=== PATIENT | female | born 1955 | race Caucasian/White ===

== ENCOUNTER 2020-08-25 18:16 | Emergency (ER) | payer SELFPAY ==
[~2020-08-25] VITALS: Ht 162.6 cm; Wt 103.4 kg
[~2020-08-25 18:16] MED LIST: AMOX500 PO; CLAR500CR PO; HYDACE5 PO; OMEP40CA12 PO; PENVK500 PO
[2020-08-25] MEDS ORDERED: HYDR1TAB94 PO (19:07)
== END 2020-08-25 19:30 | disposition home or self-care (01) ==
LOC: ER 18:16
DX: S63.502A Unspecified sprain of left wrist, initial encounter (principal); W19.XXXA Unspecified fall, initial encounter
CPT/HCPCS: 29125; 73110; 99283-25; A9270

== ENCOUNTER 2024-09-23 09:31 | Inpatient (IN) | payer OTHER ==
[~2024-09-23] VITALS: Ht 162.6 cm; Wt 82.6 kg
[~2024-09-23 09:31] MED LIST changes: +HYDR1TAB94 PO
[2024-09-23] MEDS ORDERED: Ondansetron HCl 2 MG / ML 2ML Vial IV ONE (10:00)
[2024-09-23] MEDS ORDERED: NS 1,000 ML IV SCH ×2 (10:00→14:00)
[2024-09-23 10:19] LABS: BASOPHILS ABSOLUTE AUTO 0.03 K/mm3 (0.00-0.23); BASOPHILS PERCENT AUTO 0 % (0-2); EOSINOPHILS ABSOLUTE AUTO 0.04 K/mm3 (0.00-0.68); EOSINOPHILS PERCENT AUTO 0 % (0-6); Hematocrit 37.9 % (33.0-51.0); Hemoglobin 12.5 g/dL (11.5-16.0); IMMATURE GRAN ABSOLUTE AUTO 0.06 K/mm3 (0.00-0.10); IMMATURE GRAN PERCENT AUTO 0 % (0-1); LYMPHOCYTES ABSOLUTE AUTO 0.92 K/mm3 (0.84-5.20); LYMPHOCYTES PERCENT AUTO 7 % (21-46); MONOCYTES ABSOLUTE AUTO 0.81 K/mm3 (0.16-1.47); MONOCYTES PERCENT AUTO 6 % (4-13); Mean Corpuscular HGB 27.8 pg (26.0-34.0); Mean Corpuscular Volume 84 fL (80-100); Mean Platelet Volume 10.1 fL (9.1-12.4); NEUTROPHILS ABSOLUTE AUTO 11.78 K/mm3 (1.96-9.15); NEUTROPHILS PERCENT AUTO 87 % (41-73); Platelet Count 262 K/mm3 (150-400); RDW Coefficient Variation 14.3 % (11.7-14.2); RDW Standard Deviation 44.2 fL (35.1-46.3); Red Blood Cell Count 4.49 M/mm3 (3.80-5.20); White Blood Cell Count 13.64 K/mm3 (4.00-11.30)
[2024-09-23 10:41] LABS: Albumin, Blood 3.1 g/dL (3.4-5.0); Albumin/Globulin Ratio 0.7 (0.8-1.8); Bilirubin, Total 0.6 mg/dL (0.1-1.0); Bun/Creatinine Ratio 20.1 (12.0-20.0); Calcium, Blood 9.3 mg/dL (8.5-10.1); Creatinine, Blood 2.54 mg/dL (0.40-1.00); Globulin, Blood 4.4 g/dL (2.2-4.0); Potassium, Blood 3.3 mmol/L (3.5-5.5); Total Protein, Blood 7.5 g/dL (6.4-8.2)
[2024-09-23] MEDS ORDERED: CefTRIAXone Sodium 1,000 MG in NS 100 ML IV SCH (13:30)
[2024-09-23] MEDS ORDERED: HydrALAZINE HCl 20 MG / ML 1ML Vial IV PRN (13:45)
[2024-09-23 14:03] LABS: Source, Urine Voided
[2024-09-23 14:06] LABS: Appearance, Urine Hazy (Clear); Bilirubin, Urine Neg (Neg); Blood, Urine 2+ (Neg); Glucose Qualitative, Urine Neg (Neg); Ketones, Urine 1+ (Neg); Leukocyte Esterase, Urine 1+ (Neg); Nitrite, Urine Neg (Neg); Protein, Urine 2+ (Neg); Specific Gravity, Urine 1.015 (1.003-1.022); Urobilinogen, Urine NORM (Normal)
[2024-09-23 14:17] LABS: Color, Urine Pale Yellow (P-Yellow)
[2024-09-23 14:18] LABS: Bacteria Many /hpf; Hyaline Casts 0-2 /lpf (0-2); Mucus Light (0-Heavy); Squamous Epithelial Cells Rare /hpf (Few)
[2024-09-23 14:46] VITALS: BP 189/79
[2024-09-23] MEDS ORDERED: LOSARTAN POTASS50 M1 PO (14:47)
[2024-09-23 15:05] VITALS: BP 153/76
--- NOTE | 2024-09-23 15:15 | NUR ---
ARRIVAL TO UNIT AFTER RECEIVING REPORT FROM ED RN, PATIENT TRANSFERRED TO UNIT AT APPROX 1430. PATIENT ALERT - ABLE TO STAND AND TRANSFER FROM TO BED INDEPENDENTLY. INITIAL SBP 170s-180s. MAP >65. HX OF HTN - DENIES CHEST PAIN, PRESSURE. FOLLOWING A PERIOD OF REST, SBP DECREASED TO 150s. PRN IV HYDRALAZINE IN PLACE FOR SBP >160. TELEMETRY SHOWING SINUS 70s PER PAVING RAMMER. ON ROOM AIR, SATs >90%. RR EVEN, UNLABORED. REPORTING MILD ABD PAIN - HYPOACTIVE BOWEL TONES. DENIES N/V. PLAN FOR ROBOTIC APPENDECTOMY TOMORROW - WATER PROVIDED. IVF AND IV ABX INFUSING PER EMAR. CALL LIGHT IN REACH. FAMILY AT BEDSIDE.
[2024-09-23] MEDS ORDERED: MetroNIDAZOLE 500MG/NS 100 ml 100 ML IV SCH (16:00)
[2024-09-23] MEDS ORDERED: Acetaminophen 325 MG TABLET PO PRN (16:00)
--- NOTE | 2024-09-23 17:31 | NUR ---
SHIFT SUMMARY NO ACUTE CHANGES SINCE ARRIVAL TO UNIT. PATIENT REMAINS ALERT AND ORIENTED X4. COMMUNICATES NEEDS EFFECTIVELY. VSS. NO EVENTS REPORTED BY TELEMETRY. PATIENT REQUESTING TYLENOL FOR PAIN MANAGEMENT - MD CASH CONTACTED, ORDER RECEIVED. PAIN MANAGED PER EMAR WITH PO TYLENOL. DENIES N/V. TOLERATING SMALL SIPS OF WATER - NPO AT MIDNIGHT. IVF INFUSING PER EMAR. AMBULATING WITH SBA. FAMILY AT BEDSIDE. CALL LIGHT IN REACH.
[2024-09-23 19:11] VITALS: BP 143/74
[2024-09-24] VITALS (15 sets, daily range): BP systolic 129–183; BP diastolic 66–88
[2024-09-24 05:42] LABS: Bun/Creatinine Ratio 25.6 (12.0-20.0); Calcium, Blood 8.5 mg/dL (8.5-10.1); Creatinine, Blood 1.6 mg/dL (0.40-1.00)
--- NOTE | 2024-09-24 06:43 | NUR ---
SHIFT SUMMARY PATIENT HAS HIGH PAIN TOLERANCE. MEDICATED PER EMR THIS SHIFT. GAVE TYLENOL FOR PAIN FOR BACK/FLANK PAIN. PATIENT SAYS I NEVER TAKE PAIN MEDICATION AT HOME, STATES "I USE MY MIND TO DEAL WITH IT AND KEEP BUSY SO I DONT THINK ABOUT IT." NPO SINCE MN. PATIENT INDEPENDENT TO BR, TAKES IV POLE WITH HER. STEADY ON FEET. IV IS POSITIONAL BUT WORKS WELL. NO ACUTE CHANGES T/O NOC. PATIENT SCHEDULED FOR APPY TODAY. WILL GIVE REPORT TO ONCOMING RN TAKING PT.
[2024-09-24] MEDS ORDERED: Potassium Chloride 40 MEQ in NS 250 ML IV ONE (07:50)
[2024-09-24] MEDS ORDERED: Bupivacaine 0.5% HCl 5 MG/ML 30MLVIAL ONE (08:04)
[2024-09-24] MEDS ORDERED: propofoL 20 ML IV ONE (08:19)
[2024-09-24] MEDS ORDERED: Dexamethasone Sod Phos 10 MG/ML 1ML VIAL ONE (08:19)
[2024-09-24] MEDS ORDERED: Rocuronium Bromide 10 MG/ML 5ML Injection IV ONE (08:19)
[2024-09-24] MEDS ORDERED: Ondansetron HCl 2 MG / ML 2ML Vial ONE (08:19)
[2024-09-24] MEDS ORDERED: FentaNYL Citrate 50 MCG/ML 2 ML Injection ONE ×2 (08:20→09:41)
[2024-09-24] MEDS ORDERED: Lidocaine HCl 4% 5 ML SDA ONE (08:23)
--- NOTE | 2024-09-24 10:26 | NUR ---
09/24/24 1026 [employer] IV POTASSIUM CHLORIDE 270ML 40MEQ STARTED AT 1015 BY ROD LANDRY CRNA.
[2024-09-24] MEDS ORDERED: Sugammadex Sodium 200 MG/2ML SDV (100 MG/ML) ONE (10:40)
[2024-09-24] MEDS ORDERED: Albuterol 2.5 MG/3 ML VIAL INH PRN (11:10)
[2024-09-24] MEDS ORDERED: FentaNYL Citrate 50 MCG/ML 2 ML Injection IV PRN ×3 (11:10→12:15)
[2024-09-24] MEDS ORDERED: Ondansetron HCl 2 MG / ML 2ML Vial IV PRN (11:10)
[2024-09-24] MEDS ORDERED: Lidocaine HCl 1% 5 ML SYR INJ ONE (11:10)
[2024-09-24] MEDS ORDERED: Lactated Ringer's 1,000 ML IV SCH (11:10)
[2024-09-24] MEDS ORDERED: HydrALAZINE HCl 20 MG / ML 1ML Vial IV PRN (11:10)
[2024-09-24] MEDS ORDERED: HYDROmorphone HCl/Pf 1MG SYR IV PRN (11:15)
[2024-09-24] MEDS ORDERED: HYDROmorphone HCl/Pf 1MG SYR ONE (11:20)
[2024-09-24] MEDS ORDERED: HydrALAZINE HCl 20 MG / ML 1ML Vial ONE (11:23)
[2024-09-24] MEDS ORDERED: Piperacillin/Tazobactam Sod 3.375 GM in NS 100 ML IV SCH (12:00)
--- NOTE | 2024-09-24 13:49 | NUR ---
1130 PT TO ROOM 210. LR AND POTASSIUM INFUSING IV R HAND. ALERT TO VERBAL. PT OOB TO BR TO SUCCESSFULLY VOID. POST OP VSS. DRAIN LLQ DRAINING SEROSANGUINOUS FLUID. 4 LAP SITES WITH SKIN ADHESIVE PRESENT. LUNGS MILDLY DIMINISHED BL. SCDS ON. BELLY SOFT; BT HYPOACTIVE. MD CALLED FOR PAIN ORDERS. MEDICATED PER ORDER. WILL CONTINUE TO MONITOR.
--- NOTE | 2024-09-24 14:35 | NUR ---
DRAIN DRESSING LLQ SATURATED WITH SEROSANGUINOUS FLUID. DRESSING TAKEN DOWN. REDRESSED WITH DRAIN SPONGES AND TAPE. BULB DRAIN TO BULB SUCTION
--- NOTE | 2024-09-24 16:48 | NUR ---
END OF SHIFT PT RESTING QUIETLY. DRAIN LLQ SLOWING DOWN FROM INITIAL OUTPUT. SMALL AMT SEROSANGUINOUS DRAINAGE PRESENT. PT PRESENTLY RATES PAIN 2/10. POST OP VS STABLE. IV INFUSING R HAND. WILL CONTINUE TO MONITOR.
[2024-09-25 00:23] VITALS: BP 148/75
[2024-09-25 04:39] LABS: Hematocrit 32.5 % (33.0-51.0); Hemoglobin 10.8 g/dL (11.5-16.0); Mean Corpuscular HGB 27.9 pg (26.0-34.0); Mean Corpuscular HGB Conc 33.2 g/dL (31.5-36.5); Mean Corpuscular Volume 84 fL (80-100); Mean Platelet Volume 10.3 fL (9.1-12.4); Platelet Count 242 K/mm3 (150-400); RDW Coefficient Variation 14.4 % (11.7-14.2); Red Blood Cell Count 3.87 M/mm3 (3.80-5.20); White Blood Cell Count 8.98 K/mm3 (4.00-11.30)
[2024-09-25 05:03] LABS: Bun/Creatinine Ratio 23.6 (12.0-20.0); Calcium, Blood 8.6 mg/dL (8.5-10.1); Creatinine, Blood 1.1 mg/dL (0.40-1.00); Potassium, Blood 3.5 mmol/L (3.5-5.5)
[2024-09-25 06:59] VITALS: BP 171/70
--- NOTE | 2024-09-25 07:48 | NUR ---
SHIFT SUMMARY POST-OP DAY 0, HAD APPENDECTOMY TODAY. 4 SM LAP SITES WITH SKIN GLUE NOTED, ALL CLOSED AND WELL APPROXIMATED. SHASHI DRAIN LT ABD UNDER INCISIONS WITH MINIMAL SERO/SANG DRAINAGE NOTED. MEDICATED PT PER EMAR WITH SCHEDULED 7 PRN MEDS. RESTED WELL T/O NOC POST FENTANYL GIVEN FOR PAIN. GRANDDAUGHTER WILL BE HELPING PT WHEN SHE GETS HOME. PT WITH MINIMAL SB ASSIST TO BR. VOIDING. NO ACUTE CHANGES FROM SHIFT ASSESSMENT. WILL GIVE REPORT TO [facility] THAT HAD PATIENT YESTERDAY.
--- NOTE | 2024-09-25 11:01 | NUR ---
PT OOB AMBULATING MULTIPLE LOOPS OF FLOOR ACCOMPANIED BY FAMILY MEMBER. DENIES COMPLAINTS. WILL CONTINUE TO MONTITOR.
[2024-09-25] MEDS ORDERED: Losartan Potassium 25 MG Tab PO SCH (13:00)
[2024-09-25 13:15] VITALS: BP 140/61
[2024-09-25 14:45] VITALS: BP 118/57
--- NOTE | 2024-09-25 17:37 | NUR ---
END OF SHIFT PT RESTING. IV ABX INFUSING R HAND. PASSING FLATUS. DRAIN WITH LIGHT COLORED SEROSANGUINOUS DRAINAGE. PRESENTLY DENIES PAIN. WILL CONTINUE TO MONITOR.
[2024-09-25 18:37] VITALS: BP 147/76
[2024-09-26 00:43] VITALS: BP 141/71
[2024-09-26 04:04] VITALS: BP 147/73
--- NOTE | 2024-09-26 06:07 | NUR ---
SHIFT SUMMARY A/OX4, SBA TO BATHROOM. CALLS APPROPRIATELY. LAP SITES TO ABD, SHASHI DRAIN TO LLQ. VSS, NO ACUTE CHANGES. PLAN IS TO D/C TODAY.
[2024-09-26 06:10] LABS: Bun/Creatinine Ratio 16.3 (12.0-20.0); Calcium, Blood 8.4 mg/dL (8.5-10.1); Creatinine, Blood 1.04 mg/dL (0.40-1.00); Potassium, Blood 3.1 mmol/L (3.5-5.5)
[2024-09-26 07:36] VITALS: BP 183/68
[2024-09-26] MEDS ORDERED: Potassium Chloride 20 MEQ TabCR PO ONE (07:45)
[2024-09-26] MEDS ORDERED: ACET325 PO (11:21)
[2024-09-26] MEDS ORDERED: PROBIOTIC1 EA13 PO (11:22)
[2024-09-26] MEDS ORDERED: AMOCLA875 PO (11:23)
--- NOTE | 2024-09-26 13:11 | NUR ---
DISCHARGE SUMMARY PAIN CONTROLLED WELL. TOLERATING FLUIDS AND FOOD WELL. AMBULATING WITH MINIMAL ASSISTANCE. SHASHI DRAIN EDUCATION REVIEWED AND DRESSING CHANGED TO [facility] TEGADERM PER DR. BLUM ORDER. PT FEELS COMFORTABLE WITH EMPTYING AND RECORDING DRAINAGE. INCISION SITES WNL. DISCHARGE EDUCATION REVIEWED. ESCORTED OUT VIA WC.
== END 2024-09-26 12:57 | disposition home or self-care (01) | DRG 853 ==
LOC: ER 09:31 → SURS 13:17
PROVIDERS: Emergency Medicine; Surgery; ADMIT Internal Medicine
PROC: 0W9G40Z Drainage of Peritoneal Cavity with Drainage Device, Percutaneous Endoscopic Approach (ICD-10-PCS; 2024-09-24)
PROC: 8E0W4CZ Robotic Assisted Procedure of Trunk Region, Percutaneous Endoscopic Approach (ICD-10-PCS; 2024-09-24)
PROC: 3E03329 Introduction of Other Anti-infective into Peripheral Vein, Percutaneous Approach (ICD-10-PCS; 2024-09-24)
PROC: 0DTJ4ZZ Resection of Appendix, Percutaneous Endoscopic Approach (ICD-10-PCS; principal; 2024-09-24 09:00)
DX: A41.9 Sepsis, unspecified organism (principal); K35.33 Acute appendicitis with perforation, localized peritonitis, and gangrene, with abscess; J98.11 Atelectasis; N17.9 Acute kidney failure, unspecified; E87.1 Hypo-osmolality and hyponatremia; E86.0 Dehydration; R65.20 Severe sepsis without septic shock; E66.9 Obesity, unspecified; Z68.27 Body mass index [BMI] 27.0-27.9, adult; K44.9 Diaphragmatic hernia without obstruction or gangrene; I10 Essential (primary) hypertension; E87.6 Hypokalemia; I16.0 Hypertensive urgency; M81.0 Age-related osteoporosis without current pathological fracture; R19.7 Diarrhea, unspecified; Z98.890 Other specified postprocedural states
CPT/HCPCS: 36415; 74176; 80048; 80053; 81001; 83690; 85025; 85027; 87086; 88304; 93005; 93010; 94760; 96361; 96374; 99285-25; A9270; J0360; J0696; J1100; J1171; J2003; J2405; J2543; J2704; J3010; J3480; J7030; J7050

== ENCOUNTER → 2024-12-08 | Outpatient (CLI) | payer OTHER ==
[~2024-12-08] MED LIST changes: +ACET325 PO; +AMOCLA875 PO; +LOSARTAN POTASS50 M1 PO; +PROBIOTIC1 EA13 PO
[2024-12-09 00:40] LABS: Bacterial Vaginosis PCR Negative (NEGATIVE); Candida Group, PCR NOT DETECTED (NOT DETECT); Candida glabrata-krusei, PCR NOT DETECTED (NOT DETECT)
== END ==
LOC: LAB SHORT 12:48 → LAB 12:48
PROVIDERS: Family Medicine
DX: N89.8 Other specified noninflammatory disorders of vagina (principal)
CPT/HCPCS: 81515

== ENCOUNTER → 2025-01-16 | Outpatient (CLI) | payer OTHER ==
[2025-01-16 09:46] LABS: Source, Urine Voided
[2025-01-16 10:56] LABS: Bilirubin, Urine Neg (Neg); Glucose Qualitative, Urine Neg (Neg); Ketones, Urine Neg (Neg); Leukocyte Esterase, Urine Neg (Neg); Protein, Urine Neg (Neg); Specific Gravity, Urine 1.005 (1.003-1.022); Urobilinogen, Urine NORM (Normal)
[2025-01-16 12:02] LABS: Color, Urine Yellow (P-Yellow)
== END ==
LOC: LAB SHORT 09:43 → LAB 09:43
PROVIDERS: Urology
DX: R39.15 Urgency of urination (principal)
CPT/HCPCS: 81003

== ENCOUNTER → 2025-02-13 | Outpatient (CLI) | payer OTHER | LOC: LAB 07:21 → LAB SHORT 07:21 | DX: N84.1 Polyp of cervix uteri (principal) | CPT/HCPCS: 88305 ==